=== PATIENT | female | born 1985 | race Caucasian/White ===

== ENCOUNTER 2023-09-12 15:13 | Emergency (ER) | payer OTHER, SELFPAY ==
[2023-09-12 15:19] VITALS: BP 123/70; PULSE 82; RESP 18; TEMP 36.9; O2SAT 98; BMI 28.3
--- NOTE | 2023-09-12 15:29 | CT_ITS ---
The [address] [address] Patient Name: CARMELINA VILLEGAS MRN: [id number] date: 1985 Sex: F Assigned Patient Location: ER Current Patient Location: ER Accession/Order Number: [id number] Exam Date: 09/12/2023 15:53 Report Date: 09/12/2023 16:31 At the request of: ESTELLA MAYORGA Procedure: CT lumbar spine wo con EXAM: CT lumbar spine wo con HISTORY: Radicular low back pain COMPARISON: None. TECHNIQUE: Axial CT imaging is performed. Sagittal and coronal reformatted/reconstructed sequencing was additionally performed FINDINGS: Maintenance of the normal lumbar lordosis. Vertebral body heights and alignments exhibit no fracture or listhesis. Intervertebral disc spaces are unremarkable for patient's age. Facet joints are normal. No visualized central canal or neuroforaminal stenosis on this study. The sacroiliac joints are unremarkable. No prevertebral soft tissue edema. 15 mm superior pole left renal cyst. Punctate atherosclerosis of the vascular structures. CT/CT lumbar spine wo con IMPRESSION: No visualized lumbar spine abnormality. 15 mm superior pole left renal cyst. Electronically authenticated by: RODNEY DAMIAN Date: 09/12/2023 16:31
--- NOTE | 2023-09-12 15:30 | ED.BACK1 ---
HPI - Back Pain/Injury General Chief Complaint: Back Pain/Injury Stated Complaint: BACK PAIN Time Seen by Provider: 09/12/23 15:15 Source: patient Mode of arrival: Wheelchair History of Present Illness HPI Narrative: patient is a 38-year-old female who presents to the emergency department for the evaluation of right low back pain for the last two days. She has a history of previous back issues, no recent falls or injuries but states she was plunging a toilet yesterday and then did heavy lifting at work. She reports pain is now going down the back of the right leg she describes it as a sharp burning pain. She denies paresthesias. No urinary symptoms. She is not concerned for . No medications taken prior to arrival. She has been using a heating pad without improvement. Related Data Home Medications Medication Instructions Recorded Confirmed ibuprofen 800 mg tablet (IBU) 800 mg PO Q6H 09/12/23 09/12/23 Previous Rx's Medication Instructions Recorded methocarbamol 750 mg tablet 750 mg PO TID PRN pain #20 tabs 09/12/23 methylprednisolone 4 mg tablets in See Rx Instructions .Route 09/12/23 a dose pack (Medrol (Filippo)) .COMPLEX #21 ea Allergies Allergy/AdvReac Type Severity Reaction Status Date / Time No Known Drug Allergies Allergy Verified 09/12/23 15:22 Review of Systems ROS Constitutional Denies: fever or chills Ears, nose, mouth, and throat Denies: throat pain Cardiovascular Denies: chest pain Respiratory Denies: shortness of breath or cough Gastrointestinal Denies: abdominal pain, nausea or vomiting Musculoskeletal Reports: back pain and extremity pain; Denies: neck pain Integumentary/Breast Denies: rash Neurological Denies: headache Allergic/Immunologic Denies: hives Exam Narrative Exam Narrative: Gen.: Awake, alert, in no distress Head: Normocephalic, atraumatic ENT: Moist mucous membranes Respiratory: No respiratory distress Back: No bony point tenderness of the T-spine or L-spine with diffuse tenderness of the paraspinal muscles of the right lumbar spine and right posterior buttock Extremities: Moves extremities equally, normal dorsiflexion and plantarflexion of the lower extremities, no decrease in sensation to the medial thighs Psych: Normal mood and affect Neuro: No focal neuro deficit Skin: Warm, dry, intact Constitutional Vital Signs, click to edit/add: Last Vital Signs Temp 98.4 F 09/12/23 15:19 Pulse 82 09/12/23 15:19 Resp 18 09/12/23 15:19 BP 123/70 09/12/23 15:19 Pulse Ox 98 09/12/23 15:19 O2 Del Method Room Air 09/12/23 15:19 Course Vital Signs Vital signs: Vital Signs Temperature 98.4 F 09/12/23 15:19 Pulse Rate 82 09/12/23 15:19 Respiratory Rate 18 09/12/23 15:19 Blood Pressure 123/70 09/12/23 15:19 Pulse Oximetry 98 09/12/23 15:19 Oxygen Delivery Method Room Air 09/12/23 15:19 Temperature 98.4 F 09/12/23 15:19 Pulse Rate 82 09/12/23 15:19 Respiratory Rate 18 09/12/23 15:19 Blood Pressure 123/70 09/12/23 15:19 Pulse Oximetry 98 09/12/23 15:19 Oxygen Delivery Method Room Air 09/12/23 15:19 MDM - Back Pain/Injury MDM Narrative Medical decision making narrative: CT performed for radicular low back symptoms, this shows no evidence of acute process. Patient medicated for pain in the Emergency Room and will be discharged home with symptomatic treatment. Rest, ice, gentle stretching. Follow-up with PCP and return to the Emergency Room if symptoms change or worsen. Medical Records Attestation: I reviewed the patient's medical records. Imaging Data CT lumbar spine: Attestation: I have reviewed the pertinent imaging results. Radiologist's impression: Procedure: CT lumbar spine wo con EXAM: CT lumbar spine wo con HISTORY: Radicular low back pain COMPARISON: None. TECHNIQUE: Axial CT imaging is performed. Sagittal and coronal reformatted/reconstructed sequencing was additionally performed FINDINGS: Maintenance of the normal lumbar lordosis. Vertebral body heights and alignments exhibit no fracture or listhesis. Intervertebral disc spaces are unremarkable for patient's age. Facet joints are normal. No visualized central canal or neuroforaminal stenosis on this study. The sacroiliac joints are unremarkable. No prevertebral soft tissue edema. 15 mm superior pole left renal cyst. Punctate atherosclerosis of the vascular structures. IMPRESSION: No visualized lumbar spine abnormality. 15 mm superior pole left renal cyst. Electronically authenticated by: RODNEY DAMIAN Date: 09/12/2023 16:31 Discharge Plan Discharge Chief Complaint: Back Pain/Injury Clinical Impression: Low back pain, Sciatica Patient Disposition: Home, Self-Care Time of Disposition Decision: 16:35 Condition: Good Prescriptions / Home Meds: New methocarbamol 750 mg tablet 750 mg PO TID PRN (Reason: pain) Qty: 20 0RF methylprednisolone [Medrol (Filippo)] 4 mg tablets,dose pack See Rx Instructions .ROUTE .COMPLEX Qty: 21 0RF Rx Instructions: Taper as directed No Action ibuprofen [IBU] 800 mg tablet 800 mg PO Q6H Instructions: Sciatica (ED), Back Pain (ED) Stand Alone Forms: Portal Instructions Referrals: Sarahi Du NP [Primary Care Provider] - 1 week Discharge Date/Time: 09/12/23 16:43
[2023-09-12] MEDS: ORPHENADRINE 60 MG/ 2 ML VIAL IM (15:43)
[2023-09-12] MEDS: KETOROLAC TROMETHAMINE 60 MG/2 ML VIAL IM (15:44)
[2023-09-12] MEDS: HYDROCODONE/ACET 5-325 MG TABLET 1 TAB PO (15:44)
== END 2023-09-12 16:43 | disposition home or self-care (01) ==
PROVIDERS: Emergency Provider Emergency Medicine; PCP Nurse Practitioner
DX: M54.41 Lumbago with sciatica, right side (principal); N28.1 Cyst of kidney, acquired
CPT/HCPCS: 72131; 96372; 99285

== ENCOUNTER 2024-01-09 19:36 | Emergency (ER) | payer OTHER, SELFPAY ==
[2024-01-09 19:48] VITALS: BP 115/89; PULSE 71; RESP 18; TEMP 36.8; O2SAT 98
--- OUTSIDE RECORDS SUMMARY | 2024-01-09 19:56 | XMS_ITS | CCD ---
Author Name Unknown Address [address] [place] [address] Organization [facility] Care Team Providers Care Portal Architect Name Role Phone Akhil, Meli Unavailable Unavailable Akhil, Meli Unavailable Unavailable William Fox Unavailable Unavailable GEOVANNA ABBASI Admitting Unavailable GEOVANNA ABBASI Attending Unavailable GEOVANNA ABBASI Primary Care Unavailable GEOVANNA ABBASI Consulting Unavailable KALYAN ABBASI Attending Unavailable Allergies Allergy Classification Reported Allergen(s) Allergy Type Date of Onset Reaction(s) Facility (1 source) No Known Medication Allergies; Translations: [No Known Medication Allergies] Propensity to adverse reactions (disorder) [facility] Repository Problems Problem Classification Problem Date Documented Da te Episodic/Chronic Residual codes; unclassified (4 sources) Other specified health status; Translations: [OTHER SPECIFIED HEALTH STATUS] Onset: 05-24-2022 Episodic Results Test Name Value Interpretation Reference Range Facility CBC AUTO DIFFon 05-24-2022 BASO # 0.0 103/ul Normal 0.0-0.1 [facility] Comment on above: Performed By: #### CBC #### [facility] [address] [place] [address] Dr. Camila Han Basophils/100 WBC (Bld) 0.3 % Normal 0.2-2.0 [facility] Comment on above: Performed By: #### CBC #### [facility] [address] [place] [address] Dr. Camila Han EO # 0.2 103/ul Normal 0.0-0.7 [facility] Comment on above: Performed By: #### CBC #### [facility] [address] [place] [address] Dr. Camila Han Eosinophils/100 WBC (Bld) 2.8 % Normal 0.9-7.0 [facility] Comment on above: Performed By: #### CBC #### [facility] [address] [place] [address] Dr. Camila Han Erythrocyte distribution width (RBC) [Ratio] 12.6 % Normal 11.0-15.0 [facility] Comment on above: Performed By: #### CBC #### [facility] [address] [place] [address] Dr. Camila Han Hematocrit (Bld) [Volume fraction] 42.2 % Normal 36.0-48.0 [facility] Comment on above: Performed By: #### CBC #### [facility] [address] [place] [address] Dr. Camila Han Hemoglobin (Bld) [Mass/Vol] 14.0 g/dL Normal 12.0-16.0 [facility] Comment on above: Performed By: #### CBC #### [facility] [address] [place] [address] Dr. Camila Han IG # 0.01 10e3/ul Normal 0.00-0.03 [facility] Comment on above: Performed By: #### CBC #### [facility] [address] [place] [address] Dr. Camila Han IG % 0.2 % Normal 0.0-0.5 [facility] Comment on above: Performed By: #### CBC #### [facility] [address] [place] [address] Dr. Camila Han LYMPH # 2.0 103/ul Normal 1.2-3.8 [facility] Comment on above: Performed By: #### CBC #### [facility] [address] [place] [address] Dr. Camila Han Lymphocytes/100 WBC (Bld) 34.5 % Normal 20.5-60.0 [facility] Comment on above: Performed By: #### CBC #### [facility] [address] [place] [address] Dr. Camila Han MANUAL DIFF REQ NO Normal [facility] Comment on above: Performed By: #### CBC #### [facility] [address] [address] [address] Camila Han MCH (RBC) [Entitic mass] 29.0 pg Normal 26.7-34.0 [facility] Comment on above: Performed By: #### CBC #### [facility] [address] [place] [address] Dr. Camila Han MCHC (RBC) [Mass/Vol] 33.2 g/dL Normal 29.9-35.2 [facility] Comment on above: Performed By: #### CBC #### [facility] [address] [place] [address] Dr. Camila Han MCV (RBC) [Entitic vol] 87.6 fL Normal 81.0-99.0 [facility] Comment on above: Performed By: #### CBC #### [facility] [address] [place] [address] Dr. Camila Han MONO # 0.3 103/ul Normal 0.3-0.8 [facility] Comment on above: Performed By: #### CBC #### [facility] [address] [place] [address] Dr. Camila Han Monocytes/100 WBC (Bld) 5.3 % Normal 1.7-12.0 [facility] Comment on above: Performed By: #### CBC #### [facility] [address] [place] [address] Dr. Camila Han NEUT # 3.3 103/ul Normal 1.4-6.5 [facility] Comment on above: Performed By: #### CBC #### [facility] [address] [place] [address] Dr. Camila Han Neutrophils/100 WBC (Bld) 56.9 % Normal 43.0-75.0 [facility] Comment on above: Performed By: #### CBC #### [facility] [address] [place] [address] Dr. Camila Han Platelet mean volume (Bld) [Entitic vol] 9.4 fL Critically low 9.5-13.5 [facility] Comment on above: Performed By: #### CBC #### [facility] [address] [place] [address] Dr. Camila Han PLT 246 103/ul Normal 150-450 [facility] Comment on above: Performed By: #### CBC #### [facility] [address] [address] [address] Camila Han RBC 4.82 106/ul Normal 4.20-5.40 [facility] Comment on above: Performed By: #### CBC #### [facility] [address] [place] [address] Dr. Camila Han WBC 5.8 103/ul Normal 4.0-11.0 [facility] Comment on above: Performed By: #### CBC #### [facility] [address] [place] [address] Dr. Camila Han FREE T4on 05-24-2022 Free T4 [Mass/Vol] 1.07 ng/dL Normal 0.76-1.46 [facility] Comment on above: Performed By: #### FT4 #### [facility] [address] [place] [address] Dr. Camila Han LIPID PROFILEon 05-24-2022 CHOL-HDL RATIO NORM SEE BELOW Normal [facility] Comment on above: Result Comment: 3.3 - 4.4 LOW RISK 4.4 - 7.1 AVERAGE RISK 7.1 - 11.0 MODERATE RISK >11.0 HIGH RISK Performed By: #### T SH, CMP, LIPID #### [facility] [address] [place] [address] Dr. Camila Han Cholesterol [Mass/Vol] 179 mg/dL Normal <=200 [facility] Comment on above: Performed By: #### TSH, CMP, LIPID #### [facility] [address] [place] [address] Dr. Camila Han Cholesterol in HDL [Mass/Vol] 44 mg/dL Normal 40-60 [facility] Comment on above: Performed By: #### TSH, CMP, LIPID #### [facility] [address] [place] [address] Dr. Camila Han Cholesterol in LDL [Mass/Vol] 113.4 mg/dL Normal [facility] Comment on above: Performed By: #### TSH, CMP, LIPID #### [facility] [address] [address] [address] Camila Han Cholesterol.tota l/Cholesterol in HDL [Mass ratio] 4.1 {ratio} Normal [facility] Comment on above: Performed By: #### TSH, CMP, LIPID #### [facility] [address] [address] [address] Camila Han HDL NORMAL > or = 60 mg/dl - LO W CARDIOVASCULAR RISK <40 mg/dl - HIGH CARDIOVASCULAR RISK Normal [facility] Comment on above: Performed By: #### TSH, CMP, LIPID #### [facility] [address] [address] [address] Camila Han LDL CALC NORMAL SEE BELOW Normal [facility] Comment on above: Result Comment: <100 mg/dl OPTIMAL 100 - 129 mg/dl NEAR OR ABOVE OPTIMAL 130 - 159 mg/dl BORDERLINE HIGH 160 - 189 mg/dl HIGH >190 mg/dl VERY HIGH Performed By: #### T SH, CMP, LIPID #### [facility] [address] [address] [address] Camila Han Triglyceride [Mass/Vol] 108 mg/dL Normal <=150 [facility] Comment on above: Performed By: #### TSH, CMP, LIPID #### [facility] [address] [address] [address] Camila Han VLDL CALC 21.6 mg/dL Normal [facility] Comment on above: Performed By: #### TSH, CMP, LIPID #### [facility] [address] [address] [address] Camila Han PROF 14(COMP METB)on 022 Albumin [Mass/Vol] 4.1 g/dL Normal 3.4-5.0 [facility] Comment on above: Performed By: #### TSH, CMP, LIPID #### [facility] [address] [address] [address] Camila Han Albumin/Globulin [Mass ratio] 1.1 {ratio} Normal [facility] Comment on above: Performed By: #### TSH, CMP, LIPID #### [facility] [address] [address] [address] Camila Han ALP [Catalytic activity/Vol] 51 U/L Normal 46-116 [facility] Comment on above: Performed By: #### TSH, CMP, LIPID #### [facility] [address] [address] [address] Camila Han ALT [Catalytic activity/Vol] 15 U/L Normal 14-59 [facility] Comment on above: Performed By: #### TSH, CMP, LIPID #### [facility] [address] [address] [address] Camila Han Anion gap [Moles/Vol] 14.1 mmol/L Normal [facility] Comment on above: Performed By: #### TSH, CMP, LIPID #### [facility] [address] [address] [address] Camila Han AST [Catalytic activity/Vol] 10 U/L Critically low 15-37 [facility] Comment on above: Performed By: #### TSH, CMP, LIPID #### [facility] [address] [address] [address] Camila Han Bilirubin [Mass/Vol] 0.3 mg/dL Normal 0.2-1.0 [facility] Comment on above: Performed By: #### TSH, CMP, LIPID #### [facility] [address] [address] [address] Camila Han Calcium [Mass/Vol] 9.1 mg/dL Normal 8.5-10.1 [facility] Comment on above: Performed By: #### TSH, CMP, LIPID #### [facility] [address] [address] [address] Camila Han Chloride [Moles/Vol] 104 mmol/L Normal 98-107 [facility] Comment on above: Performed By: #### TSH, CMP, LIPID #### [facility] [address] [address] [address] Camila Han CO2 [Moles/Vol] 29.0 mmol/L Normal 21.0-32.0 [facility] Comment on above: Performed By: #### TSH, CMP, LIPID #### [facility] [address] [address] [address] Camila Han Creatinine [Mass/Vol] 0.96 mg/dL Normal 0.55-1.02 [facility] Comment on above: Performed By: #### TSH, CMP, LIPID #### [facility] [address] [address] [address] Camila Han EGFR-AF GABONESE >60 Normal >=60 [facility] Comment on above: Performed By: #### TSH, CMP, LIPID #### [facility] [address] [address] [address] Camila Han EGFR-NON AF GABONESE >60 Normal >=60 [facility] Comment on above: Performed By: #### TSH, CMP, LIPID #### [facility] [address] [address] [address] Camila Han Globulin (S) [Mass/Vol] 3.8 g/dL Normal [facility] Comment on above: Performed By: #### TSH, CMP, LIPID #### [facility] [address] [address] [address] Camila Han Glucose [Mass/Vol] 90 mg/dL Normal 74-106 [facility] Comment on above: Performed By: #### TSH, CMP, LIPID #### [facility] [address] [address] [address] Camila Han Potassium [Moles/Vol] 4.1 mmol/L Normal 3.5-5.1 [facility] Comment on above: Performed By: #### TSH, CMP, LIPID #### [facility] [address] [address] [address] Camila Han Protein [Mass/Vol] 7.9 g/dL Normal 6.4-8.2 [facility] Comment on above: Performed By: #### TSH, CMP, LIPID #### [facility] [address] [address] [address] Camila Han Sodium [Moles/Vol] 143 mmol/L Normal 136-145 [facility] Comment on above: Performed By: #### TSH, CMP, LIPID #### [facility] [address] [place] [address] Dr. Camila Han Urea nitrogen [Mass/Vol] 8.0 mg/dL Normal 7.0-18.0 [facility] Comment on above: Performed By: #### TSH, CMP, LIPID #### [facility] [address] [place] [address] Dr. Camila Han Urea nitrogen/Creatin ine [Mass ratio] 8.3 mg/mg Normal [facility] Comment on above: Performed By: #### TSH, CMP, LIPID #### [facility] [address] [place] [address] Dr. Camila Han TSHon 05-24-2022 TSH 1.348 uIU/mL Normal 0.358-3.740 [facility] Comment on above: Performed By: #### TSH, CMP, LIPID #### [facility] [address] [place] [address] Dr. Camila Han UA RANDOM W/MICROSCOPICon BACTERIA NONE SEEN Normal NONE SEEN [facility] Comment on above: Performed By: #### UAMIC #### [facility] [address] [place] [address] Dr. Camila Han Bilirubin Ql (U) Negative Normal NEGATIVE [facility] Comment on above: Performed By: #### UAMIC #### [facility] [address] [place] [address] Dr. Camila Han CAST NONE SEEN Normal NONE SEEN [facility] Comment on above: Performed By: #### UAMIC #### [facility] [address] [place] [address] Dr. Camila Han Clarity (U) CLEAR Normal CLEAR [facility] Comment on above: Performed By: #### UAMIC #### [facility] [address] [place] [address] Dr. Camila Han Color (U) YELLOW Normal YELLOW [facility] Comment on above: Performed By: #### UAMIC #### [facility] [address] [place] [address] Dr. Camila Han Crystals LM Nom (Urine sed) NONE SEEN Normal NONE SEEN [facility] Comment on above: Performed By: #### UAMIC #### [facility] [address] [place] [address] Dr. Camila Han Epithelial cells LM Ql (Urine sed) FEW Abnormal NONE SEEN /RARE [facility] Comment on above: Performed By: #### UAMIC #### [facility] [address] [place] [address] Dr. Camila Han Glucose Ql (U) Negative Normal NEGATIVE [facility] Comment on above: Performed By: #### UAMIC #### [facility] [address] [place] [address] Dr. Camila Han Hemoglobin Ql (U) Negative Normal NEGATIVE [facility] Comment on above: Performed By: #### UAMIC #### [facility] [address] [place] [address] Dr. Camila Han Ketones Ql (U) Negative Normal NEGATIVE [facility] Comment on above: Performed By: #### UAMIC #### [facility] [address] [place] [address] Dr. Camila Han LEUKOCYTES Negative Normal NEGATIVE [facility] Comment on above: Performed By: #### UAMIC #### [facility] [address] [place] [address] Dr. Camila Han MUCOUS LARGE Abnormal NONE SEEN [facility] Comment on above: Performed By: #### UAMIC #### [facility] [address] [place] [address] Dr. Camila Han Nitrite Ql (U) Negative Normal NEGATIVE [facility] Comment on above: Performed By: #### UAMIC #### [facility] [address] [place] [address] Dr. Camila Han pH (U) 6.0 [pH] Normal 5-9 [facility] Comment on above: Performed By: #### UAMIC #### [facility] [address] [place] [address] Dr. Camila Han RBC NONE SEEN Abnormal 0-2 [facility] Comment on above: Performed By: #### UAMIC #### [facility] [address] [address] [address] Camila Han SPEC GRAVITY 1.025 Normal 1.005-<=1.02 5 [facility] Comment on above: Performed By: #### UAMIC #### [facility] [address] [address] [address] Camila Han UA PROTEIN Negative Normal NEGATIVE/ TRACE [facility] Comment on above: Performed By: #### UAMIC #### [facility] [address] [address] [address] Camila Han Urobilinogen Qn (U) 1.0 {Kusum'U}/dL Normal 0.2 - 1.0 [facility] Comment on above: Performed By: #### UAMIC #### [facility] [address] [place] [address] Dr. Camila Han WBC 0-2 Abnormal NONE SEEN [facility] Comment on above: Performed By: #### UAMIC #### [facility] [address] [address] [address] Camila Han Coding Summary.on 08-02-2018 Coding Summary. CODING DATE: [facility] STATUS: Home (Routine DC) PAYOR: Self Pay APC DESCRIPTION 5024 Level 4 Type A ED Visits 5693 Level 3 Drug Administration 5691 Level 1 Drug Administration ADMIT DX: REASON FOR VISIT DX: R51 Headache FINAL DX: PRINCIPAL: G43.909 Migraine, unspecified, not intractable, without status migrainosus SECONDARY: R11.0 Nausea F17.210 Nicotine dependence, cigarettes, uncomplicated PYMT PROC APC STAT DESCRIPTION DOCTOR NAME DATE NOTE: The code number assigned matches the documented diagnosis and / or procedure in the patient's chart. However, the narrative phrase printed from the coding software may appear abbreviated, or result in slightly different terminology. Coded By: Barbara Echols Date Saved: 08/02/2018 01:56 pm Normal [facility] Coding Summary. CODING DATE: [facility] STATUS: Home (Routine DC) PAYOR: Self Pay ADMIT DX: REASON FOR VISIT DX: R51 Headache FINAL DX: PRINCIPAL: G43.909 Migraine, unspecified, not intractable, without status migrainosus SECONDARY: R11.0 Nausea F17.210 Nicotine dependence, cigarettes, uncomplicated PROCEDURES DOCTOR NAME DATE NOTE: The code number assigned matches the documented diagnosis and / or procedure in the patient's chart. However, the narrative phrase printed from the coding software may appear abbreviated, or result in slightly different terminology. Coded By: Barbara Echols Date Saved: 08/02/2018 01:56 pm Normal [facility] ED Clinical Summaryon 2017 ED Clinical Summary [place] [address] ED Clinical SummaryPerson Information Name: CARMELINA VILLEGAS[facility] Age: 33 Years : 1985 12:00 AM Sex: Female Language:Romanian PCP: Ruddy RODRIGUEZ, William Juan Marital Status:Single Visit Id: Visit Reason:Headache; HEAD PAIN Speciality: Acuity: 4 Enc Type: Emergency Med Service: Emergency Arrival:07/31/2018 10:15 PM Discharge: 08/01/2018 12:02 AM LOS: 000 01:47 Checkin:07/31/2018 10:15 PM Checkout: 08/01/2018 12:02 AM Dispo Type: Home (Routine DC) EVENTS:Event Name Event Status Request Date/Time Start Date/Time Complete Date/Time Arrive Complete 07/31/2018 10:15 PM 07/31/2018 10:15 PM 07/31/2018 10:15 PM Document Home Meds Request 07/31/2018 10:15 PM Triage Complete 07/31/2018 10:15 PM 07/31/2018 10:24 PM 07/31/2018 10:24 PM Bed Assign Complete 07/31/2018 10:24 PM 07/31/2018 10:24 PM 07/31/2018 10:[address] Exam Complete 07/31/2018 10:24 PM 07/31/2018 10:24 PM 07/31/2018 10:24 PM RN Exam Complete 07/31/2018 10:24 PM 07/31/2018 10:51 PM 07/31/2018 10:51 PM Registration Complete 07/31/2018 10:24 PM 07/31/2018 10:30 PM 07/31/2018 10:30 PM Meds Admin Request 07/31/2018 10:28 PM Meds Admin Complete 07/31/2018 10:28 PM 07/31/2018 10:44 PM Reg Complete Request 07/31/2018 10:30 PM Reg Bed Request Complete 07/31/2018 10:30 PM 07/31/2018 10:30 PM 07/31/2018 10:30 PM Discharge Complete 07/31/2018 11:09 PM 08/01/2018 12:02 AM 08/01/2018 12:02 AM Transfer Complete 08/01/2018 12:02 AM 08/01/2018 12:02 AM 08/01/2018 12:02 AM AD[address] [facility] [id number] [facility] DOC NOTES: MEDICAL INFORMATION: Prescriptions Given:Prescription Display metoclopramide (metoclopramide 5 mg Tab) 5 mg = 1 tab(s), Oral, QID, PRN Headache, # 20 tab(s), Refills(s) 0 naproxen (Naprosyn 500 mg Tab) 500 mg = 1 tab(s), Oral, BID, PRN Pain, # 30 tab(s), Refills(s) 0 ondansetron (Zofran 4 mg Tab) 4 mg = 1 tab(s), Oral, q6hr, PRN Nausea, # 12 tab(s), Refills(s) 0 PATIENT EDUCATION INFORMATION: Instructions:Recurrent Migraine Headache, [id number] Follow up:With: Address: When: [place] [place] [place] [address] Business (1) Within 1 to 2 days Comments: Return to ED if symptoms worsen DIAGNOSIS:1:Migraine Normal [facility] ED Note-Physicianon 08-01-20 ED Note-Physician Basic Information Time Seen: Akhil Meli 07/31/2018 22:24Chief Complaint Pt with headache for two days now. Hx of migraines. Reports light and noise makes headache worse. Took ibuprofen this morning. Denies nausea/vomiting.History of Present Illness 33F with history of migraines presents to the ER with migraine. She states it started two days ago and has been persistent. She has taken motrin with no relief. She admits to nausea but no vomiting. No fevers or chills. No double vision or blurry vision. She has sensitivity to light. No neck pain. No rash. No chest pain or shortness of breath. This is typical of her migraine but just not improving. Currently pain is a 6/10. No diarrhea. No urinary symptoms. No weakness. No falls or injuriesReview of Systems Unless otherwise stated in this report the patient's positive and negative responses for review of systems for constitutional, eyes, ENT, cardiovascular, respiratory, gastrointestinal, neurological, genitourinary, musculoskeletal, and integument systems and related systems to the presenting problem are either as stated in the HPI or were not pertinent or were negative for the symptoms and/or complaints related to the presenting medical problem. Physical Exam Vitals & Measurements T: 36.8 ?C (Oral) HR: 74(Monitored) RR: 18 BP: 117/70 SpO2: 97% HT: 165 cm WT: 73 kg BMI: 26.81 General: Alert, no acute distress, patient resting comfortably, patient does not appear toxic or ill. Skin: warm, intact, no pallor noted Head: Normocephalic, atraumatic Eye: Normal conjunctiva. EOMI Neck: No meningeal signs Cardiac: Normal peripheral perfusion. Respiratory: No acute distress. Musculoskeletal: No deformity, full ROM. No edema Neurological: alert and oriented, normal sensory and motor observed. No focal neurological deficits on exam Psychiatric: CooperativeMedical Decision Making Toradol, reglan and benadryl ordered as well as IVFS patient re-evaluated and feels improved discharged home in stable condition is at the bedside and provided her with a ride homeAssessment/Plan 1. Migraine Orders: metoclopramide, 5 mg = 1 tab(s), Oral, QID, PRN Headache, # 20 tab(s), Refills(s) 0 naproxen, 500 mg = 1 tab(s), Oral, BID, PRN Pain, # 30 tab(s), Refills(s) 0 ondansetron, 4 mg = 1 tab(s), Oral, q6hr, PRN Nausea, # 12 tab(s), Refills(s) 0Medications Administered Given NS 1000 ml Bolus 1,000 mL, 1000 mL, IV Piggyback diphenhydrAMINE 50 mg/mL Inj, 12.5 mg, IV ketorolac 30 mg/mL Inj 1 mL, 30 mg, IV Push metoclopramide 5 mg/mL Inj, 10 mg, IV PushDisposition Plan Patient Discharge Condition improved Discharge Disposition home Discharge Prescription List Prescriptions metoclopramide 5 mg Tab, 5 mg= 1 tab(s), Oral, QID, PRN Naprosyn 500 mg Tab, 500 mg= 1 tab(s), Oral, BID, PRN Zofran 4 mg Tab, 4 mg= 1 tab(s), Oral, q6hr, PRN Follow-up With When Contact Information William Ruddy Within 1 to 2 days [employer] [place], [place] [address] Business (1) Additional Instructions: Return to ED if symptoms worsen Patient Education Recurrent Migraine Headache, [id number] List/Past Medical History Ongoing Smoker Historical No qualifying dataMedications Inpatient No active inpatient medications Home metoclopramide 5 mg Tab, 5 mg= 1 tab(s), Oral, QID, PRN Naprosyn 500 mg Tab, 500 mg= 1 tab(s), Oral, BID, PRN Zofran 4 mg Tab, 4 mg= 1 tab(s), Oral, q6hr, PRNAllergies No Known Medication AllergiesSocial History Alcohol - Denies Alcohol Use, 07/31/2018 Substance Abuse - Denies Substance Abuse, 07/31/2018 Tobacco - Medium Risk, 07/31/2018 10 or more cigarettes (1/2 pack or more)/day in last 30 days Tobacco Use:., 07/31/2018Lab Results No qualifying data available.Diagnostic Results No qualifying data available. [facility] Comment on above: Result Comment: Electronically Signed By : Meli Landaverde DO\.chelsea\Date and Time Signed: 08/01/18 01:41 EDT ED Patient Education Noteon 08-01-2018 ED Patient Education Note Family MedicineRecurrent Migraine HeadacheA migraine headache is very bad, throbbing pain on one or both sides of your head. Recurrent migraines keep coming back. Talk to your doctor about what things may bring on (trigger) your migraine headaches. HOME CARE? Only take medicines as told by your doctor.? Lie down in a dark, quiet room when you have a migraine.? Keep a journal to find out if certain things bring on migraine headaches. For example, write down:? What you eat and drink.? How much sleep you get.? Any change to your diet or medicines.? Lessen how much alcohol you drink.? Quit smoking if you smoke.? Get enough sleep.? Lessen any stress in your life.? Keep lights dim if bright lights bother you or make your migraines worse.GET HELP IF:? Medicine does not help your migraines.? Your pain keeps coming back. ? You have a fever. GET HELP RIGHT AWAY IF:? Your migraine becomes really bad.? You have a stiff neck.? You have trouble seeing.? Your muscles are weak, or you lose muscle control.? You lose your balance or have trouble walking.? You feel like you will pass out (faint), or you pass out.? You have really bad symptoms that are different than your first symptoms.MAKE SURE YOU:? Understand these instructions. ? Will watch your condition.? Will get help right away if you are not doing well or get worse.Document Released: 07/24/2009 Document Revised: 10/20/2014 Document Reviewed: 06/22/2014ExitCare? Patient Information ?2015 [employer]. This information is not intended to replace advice given to you by your health care provider. Make sure you discuss any questions you have with your health care provider. [facility] ED Patient Summaryon 018 ED Patient Summary [place] [id number] Patient Discharge Instructions Person Information Name: CARMELINA VILLEGAS Age: 33 Years Date: 07/31/2018 10:15 PMDischarge Diagnosis: 1:Migraine Primary Care Physician: William Fox MD Provider InformationPrimary Provider: Santi Landaverde DO Sonographer:None The exam and treatment you received in the Emergency Department were for an urgent problem and are not intended as complete care. It is important that you follow up with a doctor, nurse practitioner, or physician?s field technical assistant for ongoing care. If your symptoms become worse or you do not improve as expected and you are unable to reach your usual health care provider, you should return to the Emergency Department. We are available 24 hours a day. CARMELINA VILLEGAS has been given the following list of patient education materials, prescriptions and follow-up instructions: Follow-up Instructions:With: Address: When: William Fox [address] [place] [address] Business (1) Within 1 to 2 days Comments: Return to ED if symptoms worsen In the event that this physician does not participate in your insurance network, please consult with your insurance company to find a nearby participating provider. Patient Education Materials:Recurrent Migraine Headache, Vttb-[id number] A MESSAGE TO ALL PATIENTS REGARDING OPIOIDS PRESCRIPTION OPIOIDS: WHAT YOU NEED TO KNOW Prescription opioids can be used to help relieve [id number]-[id number] pain and are often prescribed following a surgery or injury, or for certain health conditions. These medications can be an important part of the treatment but also come with serious risks. It is important to work with your healthcare provider to make sure you are getting the safest, most effective care. WHAT ARE THE RISKS AND SIDE EFFECTS OF OPIOID USE?Prescription opioids carry serious risks of addiction and overdose, especially with prolonged use. An opioid overdose, often marked by slowed breathing, can cause sudden . The use of prescription opioids can have a number of side effects as well, even when taken as directed:? Tolerance?meaning you might need to take more of the medication for the same pain relief? Physical dependence?meaning you have symptoms of withdrawal when a medication is stopped? Increased sensitivity to pain ? Constipation? Nausea, vomiting, and dry mouth? Sleepiness and dizziness? Confusion? Depression? Low levels of testosterone that can result in lower sex drive, energy, and strength? Itching and sweating RISKS ARE GREATER WITH:? History of drug misuse, substance use disorder, or overdose? Mental health conditions (such as depression or anxiety)? Sleep apnea? Older age (65 years and older)? Avoid alcohol while taking prescription opioids. Also, unless specifically advised by your health care provider, medications to avoid include:? Benzodiazepines (such as Xanax or Valium)? Muscle relaxants (such as Soma or Flexeril)? Hypnotics (such as Ambien or Lunesta)? Other prescription opioids KNOW YOUR OPTIONSTalk to your health care provider about ways to manage your pain that don?t involve prescription opioids. Some of these options may actually work better and have fewer risks and side effects. Options may include:? Pain relievers such as acetaminophen, ibuprofen, and naproxen? Some medication that are also used for depression or seizures? Physical therapy and exercise? Cognitive behavioral therapy, a psychological, goal-directed approach, in which patients learn how to modify physical, behavioral, and emotional triggers of pain and stress. IF YOU ARE PRESCRIBED OPIOIDS FOR PAIN:? Never take opioids in greater amounts or more often than prescribed.? Follow up with your primary health care provider.o Work together to create a plan on how to manage your pain.o Talk about ways to help manage your pain that don?t involve prescription opioids.o Talk about any and all concerns and side effects.? Help prevent misuse and abuseo Never sell or share prescription opioids.o Never use another person?s prescription opioids.? Store prescription opioids in a secure place and out of reach of others (this may include visitors, children, friends, and family).? Safely dispose of unused prescription opioids: Find your community drug take-back program or your pharmacy mail-back program, or flush them down the toilet, following guidance from the Food and Drug Administration (www.fda.gov/Drugs/ResourcesFor You).? Visit www.cdc.gov/drugoverdose to learn about the risks of opioids abuse and overdose.? If you believe you may be struggling with addiction, tell your health rental boats caretaker and ask for guidance or call [facility]S National Helpline at 4-127-194-NFHH. z Source: [place] Department of Health and Human Services/Center for Disease Control & Prevention [facility] Medications Given:Medication Dose Route Sodium Chloride 0.9% intravenous solution 1000.00 mL Initial Volume 1000.00 mL/hr IV Piggyback Right Antecubit Kerwin metoclopramide 10.00 mg IV Push Right Antecubit Kitzmiller diphenhydrAMINE 12.50 mg IV Right Antecubit Kerwin ketorolac 30.00 mg IV Push Right Antecubit Kerwin Medication Information:New MedicationsPrinted Prescriptionsmetoclopramide (metoclopramide 5 mg Tab) 1 Tabs By Mouth 4 times a day as needed Headache. Refills: 0.naproxen (Naprosyn 500 mg Tab) 1 Tabs By Mouth 2 times a day as needed Pain. Refills: 0.ondansetron (Zofran 4 mg Tab) 1 Tabs By Mouth every 6 hours as needed Nausea. Refills: 0.Comment: Pharmacy Information: Thank you for choosing [facility] Patient Education Materials: Recurrent Migraine HeadacheA migraine headache is very bad, throbbing pain on one or both sides of your head. Recurrent migraines keep coming back. Talk to your doctor about what things may bring on (trigger) your migraine headaches. HOME CARE? Only take medicines as told by your doctor.? Lie down in a dark, quiet room when you have a migraine.? Keep a journal to find out if certain things bring on migraine headaches. For example, write down:? What you eat and drink.? How much sleep you get.? Any change to your diet or medicines.? Lessen how much alcohol you drink.? Quit smoking if you smoke.? Get enough sleep.? Lessen any stress in your life.? Keep lights dim if bright lights bother you or make your migraines worse.GET HELP IF:? Medicine does not help your migraines.? Your pain keeps coming back. ? You have a fever. GET HELP RIGHT AWAY IF:? Your migraine becomes really bad.? You have a stiff neck.? You have trouble seeing.? Your muscles are weak, or you lose muscle control.? You lose your balance or have trouble walking.? You feel like you will pass out (faint), or you pass out.? You have really bad symptoms that are different than your first symptoms.MAKE SURE YOU:? Understand these instructions. ? Will watch your condition.? Will get help right away if you are not doing well or get worse.Document Released: 07/24/2009 Document Revised: 10/20/2014 Document Reviewed: 06/22/2014ExitCare? Patient Information ?2014 [employer]. This information is not intended to replace advice given to you by your health care provider. Make sure you discuss any questions you have with your health care provider.I, CARMELINA VILLEGAS , have received the following patient education materials/instructions and have verbalized understanding: Patient Education Materials: Recurrent Migraine Headache, [id number] Follow-up Instructions: With: Address: When: [place] [place] [address] [facility] ([facility] Within 1 to 2 days Comments: Return to ED if symptoms worsen Prescriptions: [metoclopramide (metoclopramide 5 mg Tab)] [naproxen (Naprosyn 500 mg Tab)] [ondansetron (Zofran 4 mg Tab)] Patient Signature Clinician/Nurse Signature Date 08/01/18 00:02:50 [facility] Progress Note-Nurseon 2017 Protein mass conc This nurse went over all DC instructions with pt. Pt verbalizes understanding. No further needs. DC home with significant other/friend. [facility] Protein mass conc Pt reports headache improved to 5/10. Pt with discharge up, reports she is not ready to go home yet. Pt aware to call when ready for discharge or if needs more pain medication. Call light in reach. [facility] Protein mass conc Report given to NANDINI Anderson. All questions answered. [facility] Protein mass conc IV established, NS infusing without issue, pt medicated. Updated on poc, verbalized understanding. Denied any other needs at this time. [facility] Encounters Encounter Date Encounter Type Care Provider Facility Start: 10-08-2023 End: 10-08-2023 ambulatory KALYAN ABBASI Not Available Start: 05-24-2022 End: 05-25-2022 ambulatory FISCAL ASSISTANT KALYAN ABBASI Facility:[facility] Start: 08-01-2018 End: 08-01-2018 Emergency department patient visit Meli Azevedo ity:[facility] Payers Date Payer Category Payer Self-pay 1985 Unknown [id number] 1987 Unknown [id number] 1987 Unknown [id number] 1959 Unknown [id number] Summary Purpose Family History No Family History Records FoundNo Family History Records FoundNo Family History Records Found Advance Directives No Advanced Directives Records FoundNo Advanced Directives Records FoundNo Advanced Directives Records Found Additional Source Comments INFORMATION SOURCE (unrecogn ized section and content) DATE CREATED AUTHOR 10/08/2018 [facility] DATE CREATED AUTHOR AUTHOR'S ORGANIZ ATION 08/22/2022 [facility] DATE CREATED AUTHOR AUTHOR'S ORGANIZ ATION 10/10/2023 [facility] EPIC FOR RECORDS PERTAINING TO PATIENTS WHO ARE OR HAVE BEEN ENROLLED IN A CHEMICAL DEPENDENCY/SUBSTANCEABUSE PROGRAM, SOME INFORMATION MAY BE OMITTED. This clinical summary was aggregated from multiple sources. Caution should be exercised in using it in the provision of clinical care. This summary normalizes information from multiple sources, and as a consequence, information in this document may materially change the coding, format and clinical context of patient data. In addition, data may be omitted in some cases. CLINICAL DECISIONS SHOULD BE BASED ON THE PRIMARY CLINICAL RECORDS. [facility] [employer] provides no warranty or guarantee of the accuracy or completeness of information in this document.
--- NOTE | 2024-01-09 21:02 | ED_ITS ---
HPI - Dental/Oral General Chief complaint: Dental/Oral Stated complaint: Dental/Mouth Pain Time Seen by Provider: 01/09/24 19:57 Source: patient Mode of arrival: walk-in Limitations: no limitations History of Present Illness HPI Narrative: 38 year old female presents to the ED for mouth sores. Onset was 3-4 days ago. Reports a sore on her tongue and two under her tongue. She has tried OTC mouthwash and canker sore medication without relief. Denies fever, chills, injury, drainage. She is a smoker. Related Data Allergies Allergy/AdvReac Type Severity Reaction Status Date / Time No Known Drug Allergies Allergy Verified 01/09/24 19:51 Review of Systems ROS Constitutional Denies: fever or chills Ears, nose, mouth, and throat Reports: mouth pain; Denies: throat pain, neck pain, throat swelling, swelling of lips/tongue, nasal discharge or nasal congestion Cardiovascular Denies: chest pain Respiratory Denies: shortness of breath or cough Gastrointestinal Denies: nausea or vomiting PFSH PFSH Social History Smoking status: Current every day smoker Exam Constitutional Vital Signs, click to edit/add: Last Vital Signs Temp 98.2 F 01/09/24 19:48 Pulse 71 01/09/24 19:48 Resp 18 01/09/24 19:48 BP 115/89 01/09/24 19:48 Pulse Ox 98 01/09/24 19:48 O2 Del Method Room Air 01/09/24 19:48 Common normals: no apparent distress and oriented x3 General appearance: cooperative [facility] Common normals: normocephalic Face and sinus: normal facial exam Nose: external nose normal Throat: posterior oropharynx normal Other: Lesion with erythematous base to tip of tongue and two under tongue. No swelling noted. Pt handling secretions well. No bleeding or drainage. Eye Common normals: conjunctivae normal and no scleral icterus Neck & C-Spine Common normals: supple Chest Chest: symmetrical chest wall rise Respiratory Common normals: normal respiratory effort and no use of accessory muscles Effort & inspection: able to speak in complete sentences and symmetric chest movement Cardio Common normals: regular rate Neuro Sensorium/orientation: awake and alert Speech: speech normal Course Vital Signs Vital signs: Vital Signs Temperature 98.2 F 01/09/24 19:48 Pulse Rate 71 01/09/24 19:48 Respiratory Rate 18 01/09/24 19:48 Blood Pressure 115/89 01/09/24 19:48 Pulse Oximetry 98 01/09/24 19:48 Oxygen Delivery Method Room Air 01/09/24 19:48 Temperature 98.2 F 01/09/24 19:48 Pulse Rate 71 01/09/24 19:48 Respiratory Rate 18 01/09/24 19:48 Blood Pressure 115/89 01/09/24 19:48 Pulse Oximetry 98 01/09/24 19:48 Oxygen Delivery Method Room Air 01/09/24 19:48 MDM - Dental/Oral MDM Narrative Medical decision making narrative: A prescription was provided for magic mouthwash. The patient was encouraged to follow up with her pcp and/or dentist for a recheck, further evaluation and treatment. Return precautions were discussed. For this patient encounter I reviewed the mid-level provider?s documentation, medical decision-making and treatment plan, and I personally spent time with this patient. Shared APC visit, physician attestation: Dva-[id number]-face: The visit was performed by both a physician and an APC. I performed all aspects of MDM as documented. - JHay, DO Discharge Plan Discharge Stand Alone Forms: Portal Instructions Chief Complaint: Dental/Oral Clinical Impression: Mouth sores Patient Disposition: Home, Self-Care Time of Disposition Decision: 21:06 Condition: Good Mode of Transportation: Private Vehicle Instructions: Oral Mucositis (ED) Additional Instructions: Return to the ER if your condition worsens. Please follow up with your dentist and/or family care provider for a recheck, further evaluation and treatment. Referrals: Sarahi Du NP [Primary Care Provider] - 1 week Discharge Date/Time: 01/09/24 21:46
== END 2024-01-09 21:46 | disposition home or self-care (01) ==
PROVIDERS: Emergency Provider Emergency Medicine; PCP Nurse Practitioner
DX: K13.79 Other lesions of oral mucosa (principal); F17.210 Nicotine dependence, cigarettes, uncomplicated
CPT/HCPCS: 99281